=== PATIENT | male | born 1995 | race Caucasian/White ===

== ENCOUNTER 2020-04-17 10:18 | Emergency (ER) | payer BC, OTHER ==
[~2020-04-17] VITALS: Ht 172.7 cm; Wt 63.8 kg
[2020-04-17] MEDS ORDERED: SODIUM CHLORIDE FLUSH 10ML SYR IVF ONE (11:00)
[2020-04-17 11:05] LABS: BASOPHILS % (AUTO) 1 % (0-1); EOSINOPHILS % (AUTO) 3 % (1-7); LYMPHOCYTES % (AUTO) 24 % (22-44); MD NO; MEAN CORPUSCULAR HEMOGLOBIN 32.2 pg (27.5-34.5); MEAN CORPUSCULAR HGB CONC 34.9 g/dL (33.2-36.2); MONOCYTES % (AUTO) 12 % (2-9); NEUTROPHILS % (AUTO) 61 % (42-75); PLATELET COUNT 269 x10^3/uL (130-400); RED BLOOD COUNT 5.08 x10^6/uL (4.38-5.82); RED CELL DISTRIBUTION WIDTH 12.4 % (9.4-14.8)
--- NOTE | 2020-04-17 11:05 | NUR ---
PT SITTING IN BED. A&O 4. [facility] SCALE 0.
[2020-04-17 11:16] LABS: ALBUMIN 4.5 g/dL (3.4-5.0); ANION GAP 8 mmol/L (5-15); CALCIUM 9.5 mg/dL (8.5-10.1); CHLORIDE 105 mmol/L (98-107); CREATININE 1.45 mg/dL (0.7-1.3)
--- NOTE | 2020-04-17 11:33 | NUR ---
PT DOWN TO CT
--- NOTE | 2020-04-17 11:50 | NUR ---
PT BACK FROM [facility]
[2020-04-17] MEDS ORDERED: OMNIPAQUE 350 MG/ML, 100ML BOTTLE ONE (12:11)
[2020-04-17 12:49] VITALS: BP 128/80
== END 2020-04-17 13:35 | disposition home or self-care (01) ==
LOC: ED 13:15
DX: G44.52 New daily persistent headache (NDPH) (principal); N28.9 Disorder of kidney and ureter, unspecified; H54.7 Unspecified visual loss
CPT/HCPCS: 36415; 70450; 70496; 70498; 80048; 82040; 85025; 99285; Q9967